=== PATIENT | female | born 1945 | race African-American/Black ===

== ENCOUNTER 2017-01-02 17:33 | Emergency (ER) | payer MEDICARE, BC ==
[2017-01-02] MEDS ORDERED: Morphine Sulfate 2 MG/ML SYRINGE ONE (18:44)
--- NOTE | 2017-01-02 20:37 | RAD ---
LEFT ANKLE THREE VIEWS: Date: 01-02-17 FINDINGS: The lateral view shows the fracture of the anterior part of the calcaneus. A tiny calcaneal spur is present. The ankle joint itself appears intact, as do both malleoli. IMPRESSION: Fracture of the anterior plantar portion of the calcaneus. Code T POS: HOME
--- NOTE | 2017-01-02 20:39 | RAD ---
LEFT HEEL TWO VIEWS: Date: 01-02-17 FINDINGS: A fracture is present through the anterior part of the calcaneus. The axial view shows it is more ex tensive than it looks on the lateral view. There is some displacement of the fragments. The fracture line goes obliquely across the anterior calcaneus from medial towards lateral and may extend into s ome of the intertarsal joints. IMPRESSION: Slightly displaced fracture of the anterior calcaneus. POS: HOME
--- NOTE | 2017-01-02 20:40 | RAD ---
LEFT LEG TWO VIEWS: Date: 01-02-17 FINDINGS: The tibia and fibula appear intact. No fractures of these two bones were seen. IMPRESSION: No acute findings in the leg. POS: HOME
== END 2017-01-02 19:20 | disposition home or self-care (01) ==
LOC: BURERS 17:33
DX: S92.022A Displaced fracture of anterior process of left calcaneus, initial encounter for closed fracture (principal); E03.9 Hypothyroidism, unspecified; Z79.899 Other long term (current) drug therapy; W19.XXXA Unspecified fall, initial encounter
CPT/HCPCS: 28400; 96372; J2270

== ENCOUNTER 2017-08-23 14:14 | Outpatient (CLI) | payer MEDICARE, BC ==
--- NOTE | 2017-08-23 15:43 | RAD ---
LEFT HIP TWO VIEWS: History: Left hip pain. FINDINGS: No fracture, dislocation, or bony destruction is seen. Mild degenerative change is present. POS: [facility]
--- NOTE | 2017-08-23 15:45 | RAD ---
LEFT ANKLE THREE VIEWS: History: Left ankle pain. FINDINGS/IMPRESSION: Comparison is made with exam of 01-02-17. There is an old fracture involving the anterior aspect of th e calcaneus. The ankle mortise is maintained. No acute fracture, dislocation, or bony destruction is seen. A plantar calcaneal spur is present. POS: [facility]
--- NOTE | 2017-08-23 15:46 | RAD ---
RIGHT ANKLE THREE VIEWS: History: Right ankle pain. FINDINGS/IMPRESSION: No acute fracture, dislocation, or bony destruction is seen. The ankle mortise is maintained. There i s a benign appearing density in the distal tibia. A plantar calcaneal spur is present. POS: [facility]
== END 2017-08-23 14:15 | disposition home or self-care (01) ==
LOC: BURRAD 14:14
PROVIDERS: ATTEND Family Medicine
DX: M25.571 Pain in right ankle and joints of right foot (principal); M25.572 Pain in left ankle and joints of left foot; G89.29 Other chronic pain; M25.552 Pain in left hip; M77.32 Calcaneal spur, left foot; M77.31 Calcaneal spur, right foot

== ENCOUNTER 2018-02-16 17:55 | Emergency (ER) | payer MEDICARE, BC ==
[2018-02-16] MEDS ORDERED: HYDROcodone/Acetaminophen 10/325 mg Tablet ONE (18:14)
[2018-02-16] MEDS ORDERED: cefTRIAXone\\ROCEPHIN 1 GM VIAL ONE (18:14)
== END 2018-02-16 19:06 | disposition home or self-care (01) ==
LOC: BURERS 17:55
DX: K04.7 Periapical abscess without sinus (principal); E03.9 Hypothyroidism, unspecified; Z79.899 Other long term (current) drug therapy
CPT/HCPCS: 96372; J0696

== ENCOUNTER 2021-11-14 10:24 | Emergency (ER) | payer MEDICARE, OTHER ==
[2021-11-14 11:23] LABS: #Lymphocytes 0.4 thou/uL (1.20-3.40); #Monocytes 0.4 thou/uL (0.11-0.59); #Neutrophils 5.9 thou/uL (1.40-6.50); %Basophils 0.7 % (0.0-1.0); %Eosinophils 0.1 % (0.0-10.0); %Lymphocytes 5.6 % (21.0-51.0); %Monocytes 5.8 % (0.0-10.0); %Neutrophils 87.8 % (42.0-75.0); Hemoglobin 10.2 g/dL (12.0-16.0); Mean Corpuscular HGB CONC 34.3 g/dL (32.0-36.0); Mean Corpuscular Hemoglobin 31.9 pg (27.0-31.0); Mean Corpuscular Volume 93.2 fL (78.0-98.0); Mean Platelet Volume 6.7 fL (7.4-10.4); Platelet Count 24 thou/uL (130-400); RBC Distribution Width 14.2 % (11.5-14.5); Red Blood Cell (RBC) Count 3.19 mill/uL (4.20-5.40); White Blood Cell (WBC) Count 6.8 thou/uL (4.8-10.8)
[2021-11-14 11:24] LABS: MDiff Complete? YES; Manual Diff?? NO
[2021-11-14] MEDS ORDERED: Metoclopramide HCl 10 MG TAB ONE (11:25)
[2021-11-14] MEDS ORDERED: Metoclopramide HCl 10 MG/2 ML VIAL ONE (11:25)
[2021-11-14] MEDS ORDERED: diphenhydrAMINE 50 MG/ML VIAL ONE (11:25)
[2021-11-14 11:28] LABS: ALT (SGPT) 19 U/L (8-55); AST (SGOT) 20 U/L (5-34); Albumin 4.3 g/dL (3.4-4.8); Alkaline Phosphatase 98 U/L (40-110); Anion Gap 15 mmol/L (10-20); BUN (Urea Nitrogen) 8 mg/dL (9.8-20.1); Bilirubin, Total 1.8 mg/dL (0.2-1.2); Calc. Creatinine Clearance 0 mL/min (70-130); Calcium 9.4 mg/dL (7.8-10.44); Carbon Dioxide 25 mmol/L (23-31); Chloride 100 mmol/L (98-107); Estimated GFR 80; Glucose 106 mg/dL (83-110); Potassium 3.8 mmol/L (3.5-5.1); Protein, Total 7.3 g/dL (5.8-8.1); Sodium 136 mmol/L (136-145)
[2021-11-14 11:34] LABS: Bilirubin Negative (Negative); Blood, Urine Trace (Negative); Clarity Clear (Clear); Glucose, Urine (Dipstick) Negative (Negative); Ketone, Urine Trace mg/dL (Negative); Leukocyte Negative (Negative); Nitrite Negative (Negative); Protein, Urine (Dipstick) Negative (Neg-Trace); Urobilinogen 0.2 mg/dL (Less than 2); pH, Urine 7.5 (5.0-9.0)
[2021-11-14 11:42] LABS: Bacteria/HPF None Seen HPF (None Seen); RBC/HPF 0-3 HPF (0-3); Squamous Epithelial 0-3 HPF (0-3); WBC/HPF None Seen HPF (0-3)
[2021-11-14 12:18] LABS: CKMB 2.7 ng/mL (0-6.6)
== END 2021-11-14 15:47 | disposition short-term general hospital (02) ==
LOC: BURERS 10:24
DX: I24.9 Acute ischemic heart disease, unspecified (principal); D64.9 Anemia, unspecified; D69.6 Thrombocytopenia, unspecified; E03.9 Hypothyroidism, unspecified; Z79.899 Other long term (current) drug therapy
CPT/HCPCS: 36415; 70450; 71045; 80053; 81003; 81015; 82274; 82553; 83605; 84484; 85025; 93005; 94760; 96374; 96375; J1200; J2765